=== PATIENT | male | born 1985 | race Caucasian/White ===

== ENCOUNTER → 2017-08-29 | Outpatient (CLI) | payer BC ==
[2017-08-29 19:32] LABS: ADD MAN DIFF? NO
[2017-08-29 19:35] LABS: BASOPHILS % 0.3 % (0.0-2.0); EOSINOPHILS % 0.1 % (0.0-7.0); HEMATOCRIT 50.9 % (42.0-52.0); HEMOGLOBIN 16.8 g/dl (14.0-18.0); LYMPHOCYTES % 17.9 % (15.0-51.0); MEAN CORPUSCULAR HEMOGLOBIN 30.5 pg (29.0-33.0); MEAN CORPUSCULAR VOLUME 92.5 fl (82.0-101.0); MEAN PLATELET VOLUME 10.2 fl (7.4-10.4); MONOCYTE # 0.7 10^3/ul (0.3-0.9); MONOCYTES % 6.4 % (0.0-11.0); NEUTROPHIL # 8.5 10^3/ul (1.6-7.5); NEUTROPHILS % 74.9 % (39.0-77.0); PLATELET COUNT 323 10^3/UL (140-415); RED CELL DISTRIBUTION WIDTH 12.7 % (11.5-14.5)
[2017-08-29 19:35] LABS: WHITE BLOOD COUNT 11.3 10^3/ul (4.8-10.8)
[2017-08-29 19:53] LABS: ALANINE AMINOTRANSFERASE 34 IU/L (13-69); ALBUMIN 5.3 g/dl (3.3-4.9); ALKALINE PHOSPHATASE 78 IU/L (42-121); ANION GAP 20 (8-16); ASPARTATE AMINO TRANSFERASE 21 IU/L (15-46); BLOOD UREA NITROGEN 14 mg/dl (7-20); CALCIUM 10.1 mg/dl (8.4-10.2); CARBON DIOXIDE 27 mmol/L (21-31); CHLORIDE 101 mmol/L (97-110); CREATININE 1.18 mg/dl (0.61-1.24); GLUCOSE 112 mg/dl (70-220); SODIUM 143 mmol/L (135-144); TOTAL PROTEIN 8.6 g/dl (6.1-8.1)
== END | disposition home or self-care (01) ==
LOC: LAB 19:10
DX: Z00.00 Encounter for general adult medical examination without abnormal findings (principal)
CPT/HCPCS: 80053; 82652; 84443; 85025

== ENCOUNTER 2017-09-09 00:15 | Inpatient (IN) | payer BC ==
[2017-09-09] MEDS ORDERED: ACETAMINOPHEN 325 MG TAB PO (03:30)
[2017-09-09] MEDS ORDERED: ONDANSETRON 4 MG INJ IV (03:30)
[2017-09-09] MEDS ORDERED: NACL 0.9% 3 ML SYG IV (03:30)
[2017-09-09 04:07] LABS: ADD MAN DIFF? NO
[2017-09-09 04:14] LABS: WHITE BLOOD COUNT 9.9 10^3/ul (4.8-10.8)
[2017-09-09 04:14] LABS: BASOPHILS % 0.4 % (0.0-2.0); EOSINOPHILS # 0.2 10^3/ul (0.0-0.5); EOSINOPHILS % 1.8 % (0.0-7.0); HEMATOCRIT 40.4 % (42.0-52.0); HEMOGLOBIN 13.2 g/dl (14.0-18.0); LYMPHOCYTES % 30.1 % (15.0-51.0); MEAN CORPUSCULAR HEMOGLOBIN 30.8 pg (29.0-33.0); MEAN CORPUSCULAR HGB CONC 32.7 g/dl (32.0-37.0); MEAN CORPUSCULAR VOLUME 94.4 fl (82.0-101.0); MEAN PLATELET VOLUME 10.5 fl (7.4-10.4); MONOCYTE # 0.9 10^3/ul (0.3-0.9); MONOCYTES % 9.1 % (0.0-11.0); NEUTROPHIL # 5.8 10^3/ul (1.6-7.5); NEUTROPHILS % 58.2 % (39.0-77.0); PLATELET COUNT 193 10^3/UL (140-415); RED BLOOD COUNT 4.28 10^6/ul (4.70-6.10); RED CELL DISTRIBUTION WIDTH 12.8 % (11.5-14.5)
[2017-09-09] MEDS: SOD CHLORIDE 0.9% 1,000 ML IV ×2 (04:20→13:02)
[2017-09-09 04:33] LABS: INR 0.93; PROTIME 12.5 Sec (11.9-14.9)
[2017-09-09 04:34] LABS: PARTIAL THROMBOPLASTIN TIME 31.9 Sec (25.0-35.0)
[2017-09-09 04:39] LABS: ALANINE AMINOTRANSFERASE 29 IU/L (13-69); ALBUMIN 3.9 g/dl (3.3-4.9); ALBUMIN/GLOBULIN RATIO 1.25; ALKALINE PHOSPHATASE 57 IU/L (42-121); ANION GAP 9 (8-16); ASPARTATE AMINO TRANSFERASE 60 IU/L (15-46); BILIRUBIN,INDIRECT 0.4 mg/dl (0-1.1); BILIRUBIN,TOTAL 0.4 mg/dl (0.2-1.3); BLOOD UREA NITROGEN 6 mg/dl (7-20); CALCIUM 8.9 mg/dl (8.4-10.2); CARBON DIOXIDE 31 mmol/L (21-31); CHLORIDE 107 mmol/L (97-110); CREATININE 0.94 mg/dl (0.61-1.24); GLUCOSE 77 mg/dl (70-220); POTASSIUM 4.4 mmol/L (3.5-5.1); SODIUM 143 mmol/L (135-144)
[2017-09-09 04:39] LABS: HEMOGLOBIN A1C 5.4 % (0-5.9)
[2017-09-09] MEDS: CEFAZOLIN 2 GM/50 ML (PMX) 50 ML IVPB (05:02)
[2017-09-09] MEDS: morphine 2 MG INJ IV (05:29)
[2017-09-09] MEDS ORDERED: CEFAZOLIN 2 GM/50 ML (PMX) 50 ML IVPB (06:00)
[2017-09-09] MEDS: HYDROmorphONE 0.5 MG/0.5 ML SYG IV ×2 (12:14→17:22)
[2017-09-09] MEDS ORDERED: morphine LIQ (10 MG/5 ML) CUP PO (14:30)
[2017-09-09] MEDS ORDERED: VANCOMYCIN IV PER PHARMACY XX (15:00)
[2017-09-09] MEDS: VANCOMYCIN 2 GM in SOD CHLORIDE 0.9% 500 ML IVPB (17:20)
[2017-09-09] MEDS: HYDROCODONE/APAP (5/325) TAB PO (20:02)
[2017-09-10] MEDS: VANCOMYCIN 1 GM 250 ML IVPB ×3 (01:49→18:06)
[2017-09-10] MEDS: HYDROmorphONE 0.5 MG/0.5 ML SYG IV (03:59)
[2017-09-10] MEDS: SOD CHLORIDE 0.9% 1,000 ML IV ×4 (06:14→22:50)
[2017-09-10] MEDS: POLYETHYLENE GLYCOL 17 GM PACKET PO (09:08)
[2017-09-10 11:59] LABS: MAGNESIUM 1.7 mg/dl (1.7-2.5)
[2017-09-10] MEDS: morphine 4 MG/ML VIAL IV (14:35)
[2017-09-10 17:13] LABS: VANCOMYCIN,TROUGH 10.2 ug/ml (10.0-20.0)
[2017-09-10] MEDS: BISACODYL (EC) 5 MG TAB PO (20:06)
[2017-09-10] MEDS: DOCUSATE SODIUM 100 MG CAP PO (20:06)
[2017-09-10] MEDS: OXYCODONE/ACETAMINOPHEN (5/325) TAB PO (22:46)
[2017-09-11] MEDS: VANCOMYCIN 1 GM 250 ML IVPB ×3 (01:31→17:55)
[2017-09-11 06:13] LABS: MAGNESIUM 2.1 mg/dl (1.7-2.5)
[2017-09-11] MEDS: OXYCODONE/ACETAMINOPHEN (10/325) TAB PO ×3 (09:07→18:29)
[2017-09-11] MEDS: POLYETHYLENE GLYCOL 17 GM PACKET PO (09:08)
[2017-09-11] MEDS: SENNA/DOCUSATE NA (8.6MG/50MG) TAB PO (09:08)
[2017-09-11] MEDS ORDERED: HYDROmorphONE 2 MG TAB PO (17:30)
== END 2017-09-11 19:20 | disposition home health service (06) | DRG 563 ==
LOC: MS1 00:15
PROC: 2W5 Placement, Anatomical Regions, Removal (ICD-10-PCS; principal; 2017-09-10)
PROC: 2W3TX2Z Immobilization of Left Foot using Cast (ICD-10-PCS; 2017-09-10)
DX: S52.571B Other intraarticular fracture of lower end of right radius, initial encounter for open fracture type I or II (principal); S82.855A Nondisplaced trimalleolar fracture of left lower leg, initial encounter for closed fracture; S92.325A Nondisplaced fracture of second metatarsal bone, left foot, initial encounter for closed fracture; S92.225A Nondisplaced fracture of lateral cuneiform of left foot, initial encounter for closed fracture; V23.4XXA Motorcycle driver injured in collision with car, pick-up truck or van in traffic accident, initial encounter; Y92.410 Unspecified street and highway as the place of occurrence of the external cause; M25.571 Pain in right ankle and joints of right foot; M25.531 Pain in right wrist; R40.2411 Glasgow coma scale score 13-15, in the field [EMT or ambulance]
CPT/HCPCS: 71045; 73110-RT; 73200; 73630-LT; 73700; 80053; 80202; 83036; 83735; 84443; 85025; 85610; 85730; 87081; 97110; 97163; 97165; 97530; 97535